=== PATIENT | male | born 1975 | race Caucasian/White ===

== ENCOUNTER 2017-06-19 12:45 | Emergency (ER) | payer SELFPAY ==
[2017-06-19] MEDS ORDERED: MORPHINE SULFATE 10 MG/ML INJ IM ONE (14:35)
[2017-06-19] MEDS ORDERED: KETOROLAC TROMETHAMINE 60 MG/2 ML SDV IM ONE (14:36)
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
[2017-06-19 16:58] VITALS: BP 130/82
== END 2017-06-19 16:58 | disposition home or self-care (01) ==
LOC: ER 12:45
DX: M54.41 Lumbago with sciatica, right side (principal); Z88.2 Allergy status to sulfonamides
CPT/HCPCS: 99283; 96372; 72110; J1885; J2270

== ENCOUNTER 2017-09-14 16:36 | Inpatient (IN) | payer SELFPAY ==
[~2017-09-14 16:36] MED LIST: LIDOCAINE 2% INJ-PF (20 MG/ML) 2 ML AMPUL ONE
--- NOTE | 2017-09-14 17:47 | ER Document Report ---
ED Skin Rash/Insect Bite/Abscs - General Chief Complaint: Abscess Stated Complaint: ABSCESS Time Seen by Provider: 09/14/17 17:41 Notes: Patient has 4 days of swelling and pain in the upper mid buttock area. He has never had this before. It has not drained. He has been running fever. Had not had a bowel movement for 4 days until he "forced myself to do it" this morning. No nausea or vomiting or diarrhea. TRAVEL OUTSIDE OF THE [place] IN LAST 30 DAYS: No - Related Data Allergies/Adverse Reactions: Sulfa (Sulfonamide Antibiotics) Allergy (Verified 09/14/17 16:36) Past Medical History - Social History Smoking Status: Unknown if Ever Smoked Family History: None, Reviewed & Not Pertinent - Past Medical History Cardiac Medical History: Reports: Hx Hypertension Endocrine Medical History: Denies: Hx Diabetes Mellitus Type 1, Hx Diabetes Mellitus Type 2 Review of Systems - Review of Systems Notes: REVIEW OF SYSTEMS: CONSTITUTIONAL : Has had fever. CARDIOVASCULAR: Denies chest pain. RESPIRATORY: Denies cough, chest congestion, or shortness of breath. GASTROINTESTINAL: Denies abdominal pain or nausea, vomiting, or diarrhea. No bowel movement for 4 days until he went today. GENITOURINARY: Denies difficulty or painful urinating, urinary frequency, blood in urine. MUSCULOSKELETAL: Denies back or neck pain. Denies joint pain or swelling. SKIN: See HPI. NEUROLOGICAL: Denies LOC or altered mental status. Denies headache. Denies sensory loss or motor deficits. ALL OTHER SYSTEMS REVIEWED AND NEGATIVE. Physical Exam - Vital signs Vitals: Temp Pulse Resp BP Pulse Ox 99.8 F 119 H 16 164/86 H 97 09/14/17 16:40 09/14/17 16:40 09/14/17 16:40 09/14/17 16:40 09/14/17 16:40 Interpretation: Tachycardic, Febrile - Low-grade - Notes Notes: PHYSICAL EXAMINATION: GENERAL: Appears uncomfortable, laying on his left side. HEAD: Atraumatic, normocephalic. NECK: Normal range of motion, supple. LUNGS: Breath sounds clear and equal bilaterally. HEART: Regular rate and rhythm without murmurs. ABDOMEN: Soft, nontender. No guarding or rebound. No masses. Patient has a very large swollen, warm, red area around what appears to be the original pilonidal cyst. It is extremely tense and tender to touch. Not draining yet. BACK: No tenderness throughout entire back. EXTREMITIES: Normal range of motion without pain. NEUROLOGICAL: Normal speech, normal gait. Normal sensory, motor, and reflex exams. Awake, alert, and oriented x3. Cranial nerves normal. PSYCH: Normal mood, normal affect. SKIN: Warm, dry, no rashes. Course - Re-evaluation Re-evalutation: 09/14/17 17:[address] Sales because I am not sure this is an abscess that we can address here in the emergency department. He will come and see the patient. 09/14/17 18:35 Dr. Sales has seen the patient and has recommended he have his procedure done in the operating room. Antibiotics have been started. IV fluids started. Pain medicine ordered. Antibiotic ordered. - Vital Signs Vital signs: Temp Pulse Resp BP Pulse Ox 99.8 F 119 H 16 164/86 H 97 09/14/17 16:40 09/14/17 16:40 09/14/17 16:40 09/14/17 16:40 09/14/17 16:40 - Laboratory Result Diagrams: 09/14/17 18:39 09/14/17 18:39 Laboratory results interpreted by me: 09/14/17 18:39 WBC 12.5 H Hgb 17.3 H Seg Neutrophils % 78.4 H Lymphocytes % 12.9 L Absolute Neutrophils 9.8 H Discharge - Discharge Clinical Impression: Pilonidal abscess Condition: Stable Disposition: ADMITTED OBSERVATION Admitting Provider: Surgicalist Unit Admitted: OR
[2017-09-14] MEDS ORDERED: FENTANYL CITRATE INJ/PF 250 MCG/5 ML AMPULE IV ONE (17:48)
[2017-09-14] MEDS ORDERED: NORMAL SALINE 1000 ML 1,000 ML IV ONE (17:49)
--- NOTE | 2017-09-14 18:27 | PDOC H&P ---
History of Present Illness Admission Date/PCP: 09/14/17 Patient complains of: coccygeal pains History of Present Illness: CHANTELL HIGUERA is a 42 year old male who started to have coccygeal pains 4 days ago asso with fever and chills past 2 days. Denies Diabetes but has polyuria and polydipsia with symptoms of hypoglycemia. Past Medical History Cardiac Medical History: Reports: Hypertension Endocrine Medical History: Denies: Diabetes Mellitus Type 1, Diabetes Mellitus Type 2 Past Surgical History Past Surgical History: Reports: Cholecystectomy Social History Smoking Status: Current Every Day Smoker Cigarettes Packs Per Day: 1.0 Frequency of Alcohol Use: Rare Hx Recreational Drug Use: No Family History Family History: None, Reviewed & Not Pertinent Parental Family History Reviewed: Yes Children Family History Reviewed: No Sibling(s) Family History Reviewed.: No Medication/Allergy Home Medications: Lisinopril/Hydrochlorothiazide [Zestoretic 20-25 mg Tablet] 1 tab PO DAILY 09/14 Omeprazole Magnesium [Prilosec Otc] 20 mg PO DAILY 09/14/17 Acetaminophen [Tylenol 325 mg Tablet] 650 mg PO Q6HP PRN tablet 09/16/17 Amox Tr/Potassium Clavulanate [Augmentin 875-125 mg Tablet] 1 tab PO BID #20 tablet 09/16/17 Blood Sugar Diagnostic [Test Strips] 1 each MC DAILY #90 strip 09/16/17 Blood-Glucose Meter [Blood Glucose Meter] 1 unit MC DAILY PRN #1 unit 09/16/17 Insulin Lispro [Humalog Insulin (Lispro) 100 unit/mL] 0 - 12 unit SUBCUT Q6HP PRN unit 09/16/17 Lancets [Blood Lancets] 1 each MC DAILY #90 each 09/16/17 Metformin HCl [Glucophage] 850 mg PO BIDACBS #60 tablet 09/16/17 Metoclopramide HCl [Reglan 10 mg Tablet] 5 mg PO ACHS #120 tablet 09/16/17 Nicotine [Nicoderm 21 mg/24 Hr Transderm Patch] 1 each TD DAILYP PRN #30 patch.td24 09/16/17 Oxycodone HCl/Acetaminophen [Percocet 5-325 mg Tablet] 1 tab PO Q4HP PRN #18 tablet 09/16/17 Allergies/Adverse Reactions: Sulfa (Sulfonamide Antibiotics) Allergy (Verified 09/14/17 16:36) Review of Systems Constitutional: PRESENT: headache(s) Eyes: PRESENT: other - no visual/hearing changes Cardiovascular: PRESENT: other - no chest pains/cough Gastrointestinal: PRESENT: other - no n/v Genitourinary: PRESENT: other - no dysuria Integumentary: PRESENT: erythema - coccygeal area Neurological: PRESENT: dizziness Endocrine: PRESENT: other - has polyuria/polydipsia Physical Exam Vital Signs: Temp Pulse Resp BP Pulse Ox 99.8 F 119 H 16 164/86 H 97 09/14/17 16:40 09/14/17 16:40 09/14/17 16:40 09/14/17 16:40 09/14/17 16:40 Intake & Output 09/13/17 09/14/17 09/15/17 06:59 06:59 06:59 Weight 121.9 kg General appearance: PRESENT: severe distress Head exam: PRESENT: atraumatic Eye exam: PRESENT: conjunctiva pink Mouth exam: PRESENT: moist Neck exam: PRESENT: full ROM Respiratory exam: PRESENT: clear to auscultation shilpa Cardiovascular exam: PRESENT: RRR Pulses: PRESENT: normal radial pulses Vascular exam: PRESENT: normal capillary refill GI/Abdominal exam: PRESENT: soft Rectal exam: PRESENT: deferred, tenderness - above rectum at coccygeal area with erythematous swelling Extremities exam: PRESENT: clubbing Musculoskeletal exam: PRESENT: ambulatory Neurological exam: PRESENT: alert, oriented to person, oriented to place, oriented to time, oriented to situation Psychiatric exam: PRESENT: appropriate affect Skin exam: PRESENT: normal color, warm Assessment & Plan - Diagnosis (1) Pilonidal abscess Is this a current diagnosis for this admission?: Yes (2) Tobacco abuse Is this a current diagnosis for this admission?: Yes - Time Time Spent: 30 to 50 Minutes - Inpatient Certification Based on my medical assessment, after consideration of the patient's comorbidities, presenting symptoms, or acuity I expect that the services needed warrant INPATIENT care.: No I certify that my determination is in accordance with my understanding of Medicare's requirements for reasonable and necessary INPATIENT services [42 CFR 412.3e].: Yes Medical Necessity: Need For IV Fluids, Need for IV Antibiotics, Need for Surgery - Plan Summary Plan Summary: IV antibiotic For I&D
[2017-09-14] MEDS ORDERED: PIPERACILLIN/TAZOBACTAM 3.375 GM VIAL IV ONE (18:30)
[2017-09-14] MEDS ORDERED: FENTANYL CITRATE INJ/PF 100 MCG/2 ML AMPUL IV ONE (18:50)
[2017-09-14 18:52] LABS: ABSOLUTE BASOPHILS # (AUTO) 0.1 10^3/uL (0.0-0.2); ABSOLUTE EOSINOPHILS # (AUTO) 0.2 10^3/uL (0.0-0.6); ABSOLUTE LYMPHOCYTES (AUTO) 1.6 10^3/uL (0.5-4.7); ABSOLUTE MONOCYTES (AUTO) 0.7 10^3/uL (0.1-1.4); ABSOLUTE NEUT (AUTO) 9.8 10^3/uL (1.7-8.2); BASOPHILS % (AUTO) 0.8 % (0-2); EOSINOPHILS % (AUTO) 1.9 % (0-6); HEMOGLOBIN 17.3 g/dL (13.5-17.0); LYMPHOCYTES % (AUTO) 12.9 % (13-45); MEAN CORPUSCULAR HEMOGLOBIN 32.2 pg (27.0-33.4); MEAN CORPUSCULAR HGB CONC 35.2 g/dL (32.0-36.0); MEAN CORPUSCULAR VOLUME 91 fl (80-97); PLATELET COUNT 179 10^3/uL (150-450); RED BLOOD COUNT 5.37 10^6/uL (4.35-5.55); SEGMENTED NEUTROPHILS % (AUTO) 78.4 % (42-78); TOTAL CELLS COUNTED % (AUTO) 100 %; WHITE BLOOD COUNT 12.5 10^3/uL (4.0-10.5)
[2017-09-14 19:13] LABS: ANION GAP 12 (5-19); BLOOD UREA NITROGEN 11 mg/dL (7-20); CARBON DIOXIDE 29 mmol/L (22-30); CHLORIDE 94 mmol/L (98-107); GLUCOSE 362 mg/dL (75-110); SODIUM 134.9 mmol/L (137-145)
[2017-09-14] MEDS ORDERED: FENTANYL CITRATE INJ/PF 100 MCG/2 ML AMPUL ONE ×2 (20:26→20:27)
[2017-09-14] MEDS ORDERED: PROPOFOL INJ 200 MG/20 ML VIAL IV ONE (20:27)
[2017-09-14] MEDS ORDERED: MIDAZOLAM 2 MG/2 ML INJ ONE ×2 (20:27)
[2017-09-14] MEDS ORDERED: TETRACAINE HCL/PF 20MG/2ML AMPULE (SPINAL) ONE (20:47)
[2017-09-14] MEDS ORDERED: BUPIVACAINE HCL 0.5 % INJ/PF 30 ML SDV ONE (21:24)
[2017-09-14] MEDS ORDERED: LIDOCAINE 1% INJ-PF (10 MG/ML) 30 ML SDV ONE (21:33)
[2017-09-14] MEDS ORDERED: FENTANYL CITRATE INJ/PF 100 MCG/2 ML AMPUL IV PRN ×3 (21:49)
[2017-09-14] MEDS ORDERED: ONDANSETRON HCL INJ/PF 4 MG/2 ML SDV IV PRN ×2 (21:49→22:18)
[2017-09-14] MEDS ORDERED: DIPHENHYDRAMINE HCL 50 MG/ML VIAL IV PRN (21:49)
[2017-09-14] MEDS ORDERED: PROMETHAZINE HCL INJ 25 MG/1 ML VIAL IV PRN (21:49)
[2017-09-14] MEDS ORDERED: DEXMEDETOMIDINE INJ 80 MCG/20 ML VIAL IV ONE (22:00)
[2017-09-14] MEDS ORDERED: KETAMINE HCL INJ 500 MG/10 ML VIAL ONE (22:08)
[2017-09-14] MEDS ORDERED: MORPHINE SULFATE 10 MG/ML INJ IV PRN (22:14)
[2017-09-14] MEDS ORDERED: NORMAL SALINE 1000 ML 1,000 ML IV PRN (22:18)
--- NOTE | 2017-09-14 22:29 | OPERATIVE REPORT E ---
Operative Report NAME: CHANTELL HIGUERA : 1975 AGE: 42Y DATE OF SURGERY: 09/14/2017 ROOM: ED43 PREOPERATIVE DIAGNOSIS: PILONIDAL ABSCESS. POSTOPERATIVE DIAGNOSIS: PILONIDAL ABSCESS. OPERATION: Incision and drainage of pilonidal abscess. SURGEON: TYLER HARDWICK M.D. ANESTHESIA: Local MAC. INDICATION: This is a 42-year-old male who had been complaining of pain along the coccygeal area for the past 4 days. He complains of fever and chills and subsequently went to the ED. DESCRIPTION OF PROCEDURE: An attempt to do spinal anesthesia was done but unsuccessful. Because of this, an incision was then given with local MAC. The patient was then placed in the left side down position and patient given IV sedation. The pilonidal area was then prepped and draped in the usual sterile fashion. Appropriate timeout was then called. Next, local anesthesia infiltrated around pilonidal abscess. An incision was then made and a gush of purulent material noted. Cultures were then obtained. Specimen for C and S were then obtained. The incision was then extended to a distance of about 5 cm long. The cavity was then *------* dissected and some areas of *------* broken. There appeared to be some fleshy material that are yellowish that were extruded out and irrigated. Next, pulse lavage was then used to clear the cavity using about a liter of saline. Hemostasis controlled with cautery. Next, the cavity was then packed with 1/2" Iodoform gauze. Sterile dressings placed over the operative site. Needle, instrument, and sponge counts were all correct. ESTIMATED BLOOD LOSS: About 30 mL. DISPOSITION: The patient then brought to the recovery room in satisfactory condition. DICTATING PHYSICIAN: TYLER HARDWICK M.D. [id number] PHY#: [id number] ID: [id number] JOB#: [id number] ACCT: [id number] cc:TYLER HARDWICK M.D. >
[2017-09-14] MEDS: OXYCODONE-ACETAMINOPHEN 5-325 MG TABLET PO PRN (23:19)
[2017-09-14] MEDS ORDERED: ACETAMINOPHEN 325 MG TABLET ONE (23:36)
[2017-09-15] MEDS ORDERED: PIPERACILLIN SODIUM/TAZOBACTAM 3.375 GM in NORMAL SALINE 100 ML IV SCH ×2
[2017-09-15] MEDS ORDERED: PIPERACILLIN/TAZOBACTAM 3.375 GM VIAL IV ONE (00:10)
[2017-09-15] MEDS ORDERED: ACETAMINOPHEN 325 MG TABLET PO PRN (00:11)
[2017-09-15] MEDS: PIPERACILLIN/TAZOBACTAM 3.375 GM VIAL IV PRN ×2 (00:38→06:23)
[2017-09-15 01:36] LABS: ABSOLUTE EOSINOPHILS # (AUTO) 0.1 10^3/uL (0.0-0.6); ABSOLUTE LYMPHOCYTES (AUTO) 1.1 10^3/uL (0.5-4.7); ABSOLUTE MONOCYTES (AUTO) 0.8 10^3/uL (0.1-1.4); ABSOLUTE NEUT (AUTO) 9.1 10^3/uL (1.7-8.2); BASOPHILS % (AUTO) 0.4 % (0-2); EOSINOPHILS % (AUTO) 1.2 % (0-6); HEMATOCRIT 44.1 % (37.9-51.0); LYMPHOCYTES % (AUTO) 9.9 % (13-45); MEAN CORPUSCULAR HEMOGLOBIN 31.5 pg (27.0-33.4); MEAN CORPUSCULAR HGB CONC 34.1 g/dL (32.0-36.0); MEAN CORPUSCULAR VOLUME 92 fl (80-97); MONOCYTES % (AUTO) 6.9 % (3-13); PLATELET COUNT 160 10^3/uL (150-450); RED BLOOD COUNT 4.78 10^6/uL (4.35-5.55); RED CELL DISTRIBUTION WIDTH 12.9 % (11.5-14.0); SEGMENTED NEUTROPHILS % (AUTO) 81.6 % (42-78); TOTAL CELLS COUNTED % (AUTO) 100 %; WHITE BLOOD COUNT 11.1 10^3/uL (4.0-10.5)
[2017-09-15] MEDS: PIPERACILLIN SODIUM/TAZOBACTAM 3.375 GM in NORMAL SALINE 100 ML IV SCH ×5 (02:12→23:40)
[2017-09-15] MEDS: OXYCODONE-ACETAMINOPHEN 5-325 MG TABLET PO PRN ×3 (06:23→20:32)
[2017-09-15] MEDS ORDERED: NORMAL SALINE 1000 ML 1,000 ML IV PRN (09:13)
--- NOTE | 2017-09-15 09:13 | PDOC PROGRESS REPORT ---
Subjective Progress Note for:: 09/15/17 Subjective:: comfortable Reason For Visit: PILONIDAL CYST WITH ABSCESS Physical Exam Vital Signs: Temp Pulse Resp BP Pulse Ox 98.5 F 92 20 109/53 L 96 09/15/17 03:50 09/15/17 03:50 09/15/17 03:50 09/15/17 03:50 09/15/17 08:29 Pulse Oximeter Continuous Start: 09/14/17 23: 31 Freq: RTQ4 Status: Active Document 09/15/17 08:29 [employer] (Rec: 09/15/17 08:29 [employer] [id number]) Pulse Oximetry Assessment Oxygen Saturation (92-100) 96 Oxygen Delivery Method Room Air Equipment Usage Equipment in Use Continuous SpO2 Machine # [id number] Intake & Output 09/14/17 09/15/17 09/16/17 06:59 06:59 06:59 Intake Total 1975 Output Total 950 Balance 1025 Skin exam: PRESENT: other - Sacral area: surgical wound clean, no ordor, packing in place, minimal drainage, upper medial buttocks tender and indurated, no eythema Results Laboratory Results: 09/15/17 01:10 09/15/17 01:10 WBC 11.1 H RBC 4.78 Hgb 15.0 D Hct 44.1 MCV 92 MCH 31.5 MCHC 34.1 RDW 12.9 Plt Count 160 Seg Neutrophils % 81.6 H Lymphocytes % 9.9 L Monocytes % 6.9 Eosinophils % 1.2 Basophils % 0.4 Absolute Neutrophils 9.1 H Absolute Lymphocytes 1.1 Absolute Monocytes 0.8 Absolute Eosinophils 0.1 Absolute Basophils 0.0 Assessment & Plan - Diagnosis (1) Pilonidal abscess Is this a current diagnosis for this admission?: Yes Plan: A/ POD#1 after I&D pilonidal cyst abscess Cx pending Wound clean On Zosyn P/ Remove packing Replace packing with triple antibiotic ointment BiD Continue Zosyn until final cx results are available Heplock IVF
[2017-09-15] MEDS ORDERED: DEXTROSE 50%-WATER 25 GM/50 ML DISP.SYRIN IV PRN ×2 (12:26)
[2017-09-15] MEDS ORDERED: DEXTROSE 40% GEL 15 GM TUBE PO PRN ×2 (12:26)
[2017-09-15] MEDS ORDERED: GLUCAGON,HUMAN RECOMB 1 MG INJ IM PRN (12:26)
[2017-09-15] MEDS ORDERED: NICOTINE 21 MG/24 HR PATCH.TD24 TD PRN (13:25)
--- NOTE | 2017-09-15 13:25 | PDOC CONSULTATION ---
Consultation Consult Date: 09/15/17 Attending physician:: KATHERINE GALLARDO Consult reason:: New onset diabetes mellitus, type II, uncontrolled History of Present Illness Admission Date/PCP: 09/14/17 20:00 History of Present Illness: Per H&P by Dr. Sales: CHANTELL HIGUERA is a 42 year old male who started to have coccygeal pains 4 days ago asso with fever and chills past 2 days. Denies Diabetes but has polyuria and polydipsia with symptoms of hypoglycemia. The patient was seen on rounds after being consulted by the surgical team for management of new onset diabetes mellitus. The patient is seen resting in bed comfortably with his significant other (a hemodialysis nurse) present. They report that he has had polydipsia and polyuria for several weeks to months. The patient also reports early satiety and frequent sensation of abdominal bloating. He endorses a history of hypertension and current tobacco dependency, but has no other known medical history. Past Medical History Cardiac Medical History: Reports: Hypertension Denies: Coronary Artery Disease, Myocardial Infarction, Hyperlipidema Pulmonary Medical History: Reports: None EENT Medical History: Reports: None Neurological Medical History: Reports: None Endocrine Medical History: Reports: Obesity Denies: Diabetes Mellitus Type 1, Diabetes Mellitus Type 2 Renal/ Medical History: Reports: None Malignancy Medical History: Reports: None GI Medical History: Reports: None Musculoskeltal Medical History: Reports: None Skin Medical History: Reports: None Psychiatric Medical History: Reports: Tobacco Dependency Traumatic Medical History: Reports: None Hematology: Reports: None Infectious Medical History: Reports: None Past Surgical History Past Surgical History: Reports: Cholecystectomy Social History Information Source: Patient Lives with: Spouse/Significant other Smoking Status: Current Every Day Smoker Cigarettes Packs Per Day: 1.5 Number of Years Smokin Last Time Smoked: 09/14/2017 Frequency of Alcohol Use: Occasional Hx Recreational Drug Use: No Drugs: None Hx Prescription Drug Abuse: No - Advance Directive Resuscitation Status: Full Code Family History Family History: None, Hyperlipidemia, Hypertension. denies: DM Parental Family History Reviewed: Yes Children Family History Reviewed: Yes Sibling(s) Family History Reviewed.: Yes Medication/Allergy Home Medications: Lisinopril/Hydrochlorothiazide [Zestoretic 20-25 mg Tablet] 1 tab PO DAILY 09/14 Omeprazole Magnesium [Prilosec Otc] 20 mg PO DAILY 09/14/17 Allergies/Adverse Reactions: Sulfa (Sulfonamide Antibiotics) Allergy (Verified 09/14/17 16:36) Review of Systems Constitutional: ABSENT: chills, fever(s), headache(s), weight gain, weight loss Eyes: ABSENT: visual disturbances Ears: ABSENT: hearing changes Cardiovascular: ABSENT: chest pain, dyspnea on exertion, edema, orthropnea, palpitations Respiratory: ABSENT: cough, hemoptysis Gastrointestinal: PRESENT: other - Early satiety. ABSENT: abdominal pain, constipation, diarrhea, hematemesis, hematochezia, nausea, vomiting Genitourinary: ABSENT: dysuria, hematuria Musculoskeletal: ABSENT: joint swelling Integumentary: PRESENT: as per HPI. ABSENT: rash, wounds Neurological: ABSENT: abnormal gait, abnormal speech, confusion, dizziness, focal weakness, syncope Psychiatric: ABSENT: anxiety, depression, homidical ideation, suicidal ideation Endocrine: PRESENT: polydipsia, polyuria. ABSENT: cold intolerance, heat intolerance Hematologic/Lymphatic: ABSENT: easy bleeding, easy bruising Physical Exam Vital Signs: Temp Pulse Resp BP Pulse Ox 98.2 F 73 20 106/63 95 09/15/17 09:00 09/15/17 09:00 09/15/17 09:00 09/15/17 09:00 09/15/17 09:00 Pulse Oximeter Continuous Start: 09/14/17 23: 31 Freq: RTQ4 Status: Complete Document 09/15/17 08:29 [facility] (Rec: 09/15/17 08:29 [facility] [email or web address]) Pulse Oximetry Assessment Oxygen Saturation (92-100) 96 Oxygen Delivery Method Room Air Equipment Usage Equipment in Use Continuous SpO2 Machine # [id number] Intake & Output 09/14/17 09/15/17 09/16/17 06:59 06:59 06:59 Intake Total 1975 Output Total 950 Balance 1025 General appearance: PRESENT: no acute distress, morbidly obese, well-developed, well-nourished Head exam: PRESENT: atraumatic, normocephalic Eye exam: PRESENT: conjunctiva pink, EOMI, PERRLA. ABSENT: scleral icterus Ear exam: PRESENT: normal external ear exam Mouth exam: PRESENT: moist, tongue midline Neck exam: ABSENT: carotid bruit, JVD, lymphadenopathy, thyromegaly Respiratory exam: PRESENT: clear to auscultation sihlpa, symmetrical, unlabored. ABSENT: rales, rhonchi, wheezes Cardiovascular exam: PRESENT: RRR, +S1, +S2. ABSENT: diastolic murmur, rubs, systolic murmur Pulses: PRESENT: normal dorsalis pedis pul Vascular exam: PRESENT: normal capillary refill GI/Abdominal exam: PRESENT: distended, firm, normal bowel sounds. ABSENT: guarding, mass, organolmegaly, rebound, tenderness Rectal exam: PRESENT: deferred Extremities exam: PRESENT: full ROM. ABSENT: calf tenderness, clubbing, pedal edema Neurological exam: PRESENT: alert, awake, oriented to person, oriented to place , oriented to time, oriented to situation, CN II-XII grossly intact. ABSENT: motor sensory deficit Psychiatric exam: PRESENT: appropriate affect, normal mood. ABSENT: homicidal ideation, suicidal ideation Skin exam: PRESENT: dry, intact, warm. ABSENT: cyanosis, rash Results Laboratory Results: 09/15/17 01:10 09/15/17 01:10 WBC 11.1 H RBC 4.78 Hgb 15.0 D Hct 44.1 MCV 92 MCH 31.5 MCHC 34.1 RDW 12.9 Plt Count 160 Seg Neutrophils % 81.6 H Lymphocytes % 9.9 L Monocytes % 6.9 Eosinophils % 1.2 Basophils % 0.4 Absolute Neutrophils 9.1 H Absolute Lymphocytes 1.1 Absolute Monocytes 0.8 Absolute Eosinophils 0.1 Absolute Basophils 0.0 Assessment & Plan - Diagnosis (1) Diabetes mellitus Qualifiers: Diabetes mellitus type: type 2 Diabetes mellitus senior care insulin use: without senior care use Is this a current diagnosis for this admission?: Yes Plan: New problem. The patient was admitted by surgical team for incision and draining of perineal abscess. Incidentally found to have a fasting blood glucose of greater than 300. Patient and significant other report recent history of polyuria and polydipsia. Will obtain hemoglobin A1c to determine aggressiveness of therapy. We will obtain lipid panel with morning labs. He is placed on a consistent carb diet with Humalog for sliding scale coverage. We will consult the registered dietitian and the senior health educator. (2) Hypertension Is this a current diagnosis for this admission?: Yes Plan: We will resume the patient's home medications; lisinopril and hydrochlorothiazide. (3) Abdominal fullness Is this a current diagnosis for this admission?: Yes Plan: Patient reports early satiety with sensation of abdominal fullness. Denies constipation. Given the patient's new diagnosis of diabetes mellitus will consider gastroparesis. Patient and significant other are interested in a trial of Reglan therapy. (4) Tobacco abuse Is this a current diagnosis for this admission?: Yes Plan: Smoking cessation is encouraged; nicotine replacement therapy is provided. (5) Pilonidal abscess Is this a current diagnosis for this admission?: Yes Plan: Managed by primary team; surgical assistant. - Time Time Spent: 30 to 50 Minutes Smoking Cessation Education: 3 to 10 minutes Medications reviewed and adjusted accordingly: Yes Anticipated discharge: Home
[2017-09-15] MEDS ORDERED: METOCLOPRAMIDE HCL 10 MG TABLET PO ONE (14:00)
[2017-09-15] MEDS: INSULIN LISPRO 100 UNIT/ML 3 ML VIAL SUBCUT PRN ×2 (17:39→21:46)
[2017-09-15] MEDS: METOCLOPRAMIDE HCL 10 MG TABLET PO SCH (21:33)
[2017-09-16] MEDS: PIPERACILLIN SODIUM/TAZOBACTAM 3.375 GM in NORMAL SALINE 100 ML IV SCH (05:05)
[2017-09-16 05:41] LABS: ABSOLUTE BASOPHILS # (AUTO) 0.1 10^3/uL (0.0-0.2); ABSOLUTE EOSINOPHILS # (AUTO) 0.3 10^3/uL (0.0-0.6); ABSOLUTE LYMPHOCYTES (AUTO) 1.8 10^3/uL (0.5-4.7); ABSOLUTE MONOCYTES (AUTO) 0.5 10^3/uL (0.1-1.4); ABSOLUTE NEUT (AUTO) 3.3 10^3/uL (1.7-8.2); BASOPHILS % (AUTO) 1.1 % (0-2); EOSINOPHILS % (AUTO) 4.5 % (0-6); HEMATOCRIT 40.8 % (37.9-51.0); HEMOGLOBIN 14.3 g/dL (13.5-17.0); LYMPHOCYTES % (AUTO) 30.8 % (13-45); MEAN CORPUSCULAR HEMOGLOBIN 31.7 pg (27.0-33.4); MEAN CORPUSCULAR VOLUME 91 fl (80-97); MONOCYTES % (AUTO) 7.9 % (3-13); PLATELET COUNT 156 10^3/uL (150-450); RED CELL DISTRIBUTION WIDTH 12.7 % (11.5-14.0); SEGMENTED NEUTROPHILS % (AUTO) 55.7 % (42-78); TOTAL CELLS COUNTED % (AUTO) 100 %
[2017-09-16 06:05] LABS: ANION GAP 8 (5-19); BLOOD UREA NITROGEN 7 mg/dL (7-20); CALCIUM 8.6 mg/dL (8.4-10.2); CARBON DIOXIDE 28 mmol/L (22-30); CHLORIDE 103 mmol/L (98-107); CHOLESTEROL 131.15 mg/dL (0-200); GLUCOSE 202 mg/dL (75-110); POTASSIUM 3.7 mmol/L (3.6-5.0); SODIUM 139.2 mmol/L (137-145); TRIGLYCERIDES 129 mg/dL (<150)
[2017-09-16 06:16] LABS: DIRECT LDL 89 mg/dL (<100)
--- NOTE | 2017-09-16 09:51 | PDOC PROGRESS REPORT ---
Subjective Progress Note for:: 09/16/17 Subjective:: reports much less discomfort of sacral area Reason For Visit: PILONIDAL CYST WITH ABSCESS Physical Exam Vital Signs: Temp Pulse Resp BP Pulse Ox 98.2 F 84 12 126/77 H 96 09/16/17 08:00 09/16/17 08:00 09/16/17 08:00 09/16/17 08:00 09/16/17 08:00 Pulse Oximeter Continuous Start: 09/14/17 23: 31 Freq: RTQ4 Status: Complete Document 09/15/17 08:29 [facility] (Rec: 09/15/17 08:29 [facility] [email or web address]) Pulse Oximetry Assessment Oxygen Saturation (92-100) 96 Oxygen Delivery Method Room Air Equipment Usage Equipment in Use Continuous SpO2 Machine # N-[id number] Intake & Output 09/15/17 09/16/17 09/17/17 06:59 06:59 06:59 Intake Total 1974 2014 Output Total 950 600 Balance 1025 1415 Skin exam: PRESENT: other - upper sacral area: still tissue induration, almost no pain on palpation, wound clean, no odor, minimal drainage Results Laboratory Results: 09/16/17 05:24 09/16/17 05:24 09/16/17 09/16/17 05:24 05:24 WBC 6.0 RBC 4.50 Hgb 14.3 Hct 40.8 MCV 91 MCH 31.7 MCHC 35.0 RDW 12.7 Plt Count 156 Seg Neutrophils % 55.7 Lymphocytes % 30.8 Monocytes % 7.9 Eosinophils % 4.5 Basophils % 1.1 Absolute Neutrophils 3.3 Absolute Lymphocytes 1.8 Absolute Monocytes 0.5 Absolute Eosinophils 0.3 Absolute Basophils 0.1 Sodium 139.2 Potassium 3.7 Chloride 103 Carbon Dioxide 28 Anion Gap 8 BUN 7 Creatinine 0.54 Est GFR ( Amer) > 60 Est GFR (Non-Af Amer) > 60 Glucose 202 H Calcium 8.6 Triglycerides 129 Cholesterol 131.15 LDL Cholesterol Direct 89 VLDL Cholesterol 26.0 HDL Cholesterol 24 L Assessment & Plan - Diagnosis (1) Pilonidal abscess Is this a current diagnosis for this admission?: Yes - Plan Summary Plan Summary: A/ POD#2 after I&D pilonoidal cyst preliminary cx significant for GNR and GPC PE shows goo response to I&D and IV abx P/ Discharge to home today Augmentin 875 mg po BID x 10 days shower BID, apply 3-4" triple antibiotic ointment into sacral wound, lightly pack with 5-7" 1/4 packing strip using a q-tip, cover with sponges return to General Surgery office PA
[2017-09-16] MEDS ORDERED: LISINOPRIL 10 MG TABLET PO SCH (10:00)
[2017-09-16] MEDS ORDERED: HYDROCHLOROTHIAZIDE 25 MG TABLET PO SCH (10:00)
[2017-09-16] MEDS ORDERED: (PENDING PHARMACY ID) (Lisinopril/Hydrochlorothiazide [Zestoretic 20-25 Mg Tablet] 1 TAB) PO SCH (10:00)
[2017-09-16] MEDS: OXYCODONE-ACETAMINOPHEN 5-325 MG TABLET PO PRN (10:05)
[2017-09-16] MEDS: METOCLOPRAMIDE HCL 10 MG TABLET PO SCH (10:07)
--- NOTE | 2017-09-16 10:09 | DISCHARGE SUMMARY E ---
Discharge Summary NAME: CHANTELL HIGUERA : 1975 AGE: 42Y ADMITTED: 09/14/2017 DISCHARGED: 09/16/2017 FINAL DIAGNOSIS: Perianal cyst abscess. PROCEDURE: On September 14, 2017, the patient underwent incision and drainage of pylonidal cyst abscess. COMPLICATIONS: None. HOSPITAL COURSE: This is a 42-year-old morbidly obese male diagnosed with diabetes who presented to the emergency room with pain at the sacral area. It was found to be an abscess of a pylonidal cyst. He was taken to surgery. He underwent incision and drainage and cultures of the area. He was started on IV Zosyn antibiotic with improvement. On the day of discharge, the patient was afebrile. Vital signs were stable. His white blood cell count was normal. He was able to tolerate p.o. well. On physical exam, the sacral area had no evidence of erythema. There was some tissue induration and minimal pain. The wound was clean, draining minimal amount of serous fluid. Intraoperative culture were signficant for gram negative rods and positive cocci. DISCHARGE ORDERS: The patient was discharged to home on September 16. He was given a followup appointment in about a week to surgical office with the surgical PA. He was given Augmentin 875 mg p.o. b.i.d. for 10 days. He was instructed to shower twice a day. After shower, to apply 2-4 inches of triple antibiotic ointment into the wound and to pack the wound lightly with about 5-7 inches of 1/4 inch packing strip. DICTATING PHYSICIAN: KATHERINE GALLARDO M.D. [id number] PHY#: [id number] ID: [id number] JOB#: [id number] ACCT: [id number] cc:[facility], KATHERINE SEO MD, M.D, M.D., JAMES M.D. > MTDD
[2017-09-16 11:09] VITALS: BP 131/84
--- NOTE | 2017-09-16 11:29 | PDOC PROGRESS REPORT ---
Subjective Progress Note for:: 09/16/17 Subjective:: The patient is a 42-year-old male with a past medical history significant for hypertension, obesity and continuous tobacco use who was admitted by the surgical team for incision and drainage of a pilonidal abscess. Hospitalist service was consulted for evaluation and management of new diagnosis of diabetes mellitus. The patient was seen on morning rounds; he is found resting in bed comfortably on room air. He is very appreciative of the extension educator who spent time with him yesterday. He does request not to be prescribed insulin as he has a needle aversion, but does feel he can check his blood sugar without difficulty. He also asks for $4-list medications as he is uninsured. Otherwise, he has no new questions or concerns. Reason For Visit: PILONIDAL CYST WITH ABSCESS Physical Exam Vital Signs: Temp Pulse Resp BP Pulse Ox 98.5 F 85 13 131/84 H 96 09/16/17 11:00 09/16/17 11:00 09/16/17 11:00 09/16/17 11:00 09/16/17 11:00 Pulse Oximeter Continuous Start: 09/14/17 23: 31 Freq: RTQ4 Status: Complete Document 09/15/17 08:29 [facility] (Rec: 09/15/17 08:29 [facility] [email or web address]) Pulse Oximetry Assessment Oxygen Saturation (92-100) 96 Oxygen Delivery Method Room Air Equipment Usage Equipment in Use Continuous SpO2 Machine # N-5 Intake & Output 09/15/17 09/16/17 09/17/17 06:59 06:59 06:59 Intake Total 1974 2014 Output Total 950 600 Balance 1025 1415 General appearance: PRESENT: no acute distress, obese, well-developed, well- nourished Head exam: PRESENT: atraumatic, normocephalic Eye exam: PRESENT: conjunctiva pink, EOMI, PERRLA. ABSENT: scleral icterus Ear exam: PRESENT: normal external ear exam Mouth exam: PRESENT: moist, tongue midline Neck exam: ABSENT: carotid bruit, JVD, lymphadenopathy, thyromegaly Respiratory exam: PRESENT: clear to auscultation shilpa, symmetrical, unlabored. ABSENT: rales, rhonchi, wheezes Cardiovascular exam: PRESENT: RRR, +S1, +S2. ABSENT: diastolic murmur, rubs, systolic murmur Pulses: PRESENT: normal dorsalis pedis pul Vascular exam: PRESENT: normal capillary refill GI/Abdominal exam: PRESENT: normal bowel sounds, soft. ABSENT: distended, guarding, mass, organolmegaly, rebound, tenderness Rectal exam: PRESENT: deferred Extremities exam: PRESENT: full ROM. ABSENT: calf tenderness, clubbing, pedal edema Neurological exam: PRESENT: alert, awake, oriented to person, oriented to place , oriented to time, oriented to situation, CN II-XII grossly intact. ABSENT: motor sensory deficit Psychiatric exam: PRESENT: appropriate affect, normal mood. ABSENT: homicidal ideation, suicidal ideation Skin exam: PRESENT: dry, warm. ABSENT: cyanosis, intact - surgical site not visualized, rash Results Laboratory Results: 09/16/17 05:24 09/16/17 05:24 09/16/17 09/16/17 05:24 05:24 WBC 6.0 RBC 4.50 Hgb 14.3 Hct 40.8 MCV 91 MCH 31.7 MCHC 35.0 RDW 12.7 Plt Count 156 Seg Neutrophils % 55.7 Lymphocytes % 30.8 Monocytes % 7.9 Eosinophils % 4.5 Basophils % 1.1 Absolute Neutrophils 3.3 Absolute Lymphocytes 1.8 Absolute Monocytes 0.5 Absolute Eosinophils 0.3 Absolute Basophils 0.1 Sodium 139.2 Potassium 3.7 Chloride 103 Carbon Dioxide 28 Anion Gap 8 BUN 7 Creatinine 0.54 Est GFR ( Amer) > 60 Est GFR (Non-Af Amer) > 60 Glucose 202 H Calcium 8.6 Triglycerides 129 Cholesterol 131.15 LDL Cholesterol Direct 89 VLDL Cholesterol 26.0 HDL Cholesterol 24 L Assessment & Plan - Diagnosis (1) Diabetes mellitus Qualifiers: Diabetes mellitus type: type 2 Diabetes mellitus usp insulin use: without intermission coordinator use Is this a current diagnosis for this admission?: Yes Plan: New problem. A1c 11.6% The patient was admitted by surgical team for incision and draining of perineal abscess. Incidentally found to have a fasting blood glucose of greater than 300. Patient and significant other report recent history of polyuria and polydipsia. Lipid panel is acceptable; pt is encouraged to increase fiber and exercise to improve HDL. Continue consistent carb diet. The patient has met with the extension educator. In anticipation of discharge; pt is provided prescriptions for glucometer/strips /lancets and metformin. He is strongly encouraged to make dietary changes and increase physical activity. (2) Hypertension Is this a current diagnosis for this admission?: Yes Plan: Continue home medications; lisinopril and hydrochlorothiazide. (3) Abdominal fullness Is this a current diagnosis for this admission?: Yes Plan: Improved with addition of reglan yesterday. Patient reports early satiety with sensation of abdominal fullness. Denies constipation. Given the patient's new diagnosis of diabetes mellitus will consider gastroparesis. Patient encouraged to discuss symptoms with primary care provider at follow-up. (4) Tobacco abuse Is this a current diagnosis for this admission?: Yes Plan: Smoking cessation is encouraged; nicotine replacement therapy is provided. (5) Pilonidal abscess Is this a current diagnosis for this admission?: Yes Plan: Managed by primary team; registered nurse surgical services. - Time Time Spent with patient: 15-24 minutes Medications reviewed and adjusted accordingly: Yes
== END 2017-09-16 11:50 | disposition home or self-care (01) | DRG 603 ==
LOC: ER 16:36 → EH 18:51 → OBSVTOIN 20:00 → 4S 23:04
PROVIDERS: ADMIT Surgery; ATTEND Surgery
PROC: 0H98XZZ Drainage of Buttock Skin, External Approach (ICD-10-PCS; principal; 2017-09-14 21:30)
DX: L05.01 Pilonidal cyst with abscess (principal); Z68.41 Body mass index [BMI] 40.0-44.9, adult; I10 Essential (primary) hypertension; E11.65 Type 2 diabetes mellitus with hyperglycemia; E66.01 Morbid (severe) obesity due to excess calories; B96.89 Other specified bacterial agents as the cause of diseases classified elsewhere; F17.210 Nicotine dependence, cigarettes, uncomplicated; Z79.84 Long term (current) use of oral hypoglycemic drugs; Z79.4 Long term (current) use of insulin; Z79.899 Other long term (current) drug therapy
CPT/HCPCS: 300; 36415; 80048; 80061; 82962; 83036; 85025; 87040; 87070; 87075; 87077; 87205; 94762; 96365; 96375; 99285; A6266; J1815; J2250; J2543; J2704; J3010; J3490; J7030

== ENCOUNTER 2017-10-12 16:54 | Inpatient (IN) | payer SELFPAY ==
[2017-10-12 17:53] LABS: ABSOLUTE EOSINOPHILS # (AUTO) 0.1 10^3/uL (0.0-0.6); ABSOLUTE LYMPHOCYTES (AUTO) 1.4 10^3/uL (0.5-4.7); ABSOLUTE MONOCYTES (AUTO) 0.6 10^3/uL (0.1-1.4); ABSOLUTE NEUT (AUTO) 7.5 10^3/uL (1.7-8.2); BASOPHILS % (AUTO) 0.2 % (0-2); EOSINOPHILS % (AUTO) 0.8 % (0-6); HEMATOCRIT 45.8 % (37.9-51.0); HEMOGLOBIN 16.1 g/dL (13.5-17.0); LYMPHOCYTES % (AUTO) 14.6 % (13-45); MEAN CORPUSCULAR HGB CONC 35.2 g/dL (32.0-36.0); MEAN CORPUSCULAR VOLUME 91 fl (80-97); PLATELET COUNT 161 10^3/uL (150-450); RED BLOOD COUNT 5.04 10^6/uL (4.35-5.55); RED CELL DISTRIBUTION WIDTH 13.2 % (11.5-14.0); SEGMENTED NEUTROPHILS % (AUTO) 78.4 % (42-78); TOTAL CELLS COUNTED % (AUTO) 100 %; WHITE BLOOD COUNT 9.6 10^3/uL (4.0-10.5)
[2017-10-12 18:01] LABS: APPEARANCE,URINE CLEAR; BILIRUBIN,URINE NEGATIVE (NEGATIVE); COLOR,URINE YELLOW; GLUCOSE, URINE NEGATIVE (NEGATIVE); KETONES,URINE NEGATIVE (NEGATIVE); LEUKOCYTE ESTERASE,URINE NEGATIVE (NEGATIVE); NITRITE,URINE NEGATIVE (NEGATIVE); PROTEIN,URINE 30 mg/dL (NEGATIVE); URINE SPECIFIC GRAVITY 1.017
[2017-10-12 18:02] LABS: INTERNATIONAL RATION (INR) 1.04; PROTHROMBIN TIME 14.1 SEC (11.4-15.4)
[2017-10-12] MEDS: NORMAL SALINE 1000 ML 1,000 ML IV PRN ×2 (18:03→18:04)
[2017-10-12 18:15] LABS: ALANINE AMINOTRANSFERASE 49 U/L (21-72); ALBUMIN 4.6 g/dL (3.5-5.0); ALKALINE PHOSPHATASE 61 U/L (38-126); ANION GAP 19 (5-19); ASPARTATE AMINO TRANSFERASE 32 U/L (17-59); BILIRUBIN,DIRECT 0.4 mg/dL (0.0-0.4); BILIRUBIN,TOTAL 0.8 mg/dL (0.2-1.3); BLOOD UREA NITROGEN 7 mg/dL (7-20); CALCIUM 9.9 mg/dL (8.4-10.2); CARBON DIOXIDE 24 mmol/L (22-30); CHLORIDE 96 mmol/L (98-107); GLUCOSE 154 mg/dL (75-110); LIPASE 42.9 U/L (23-300); POTASSIUM 4.2 mmol/L (3.6-5.0); SODIUM 138.8 mmol/L (137-145); TOTAL PROTEIN 7.7 g/dL (6.3-8.2)
[2017-10-12] MEDS ORDERED: ACETAMINOPHEN 325 MG TABLET PO ONE (18:18)
--- NOTE | 2017-10-12 18:39 | RADIOLOGY REPORT (SQ) ---
EXAM DESCRIPTION: CTA CHEST COMPLETED DATE/TIME: 10/12/2017 6:25 pm REASON FOR STUDY: recent surgery hypoxia fever COMPARISON: None. TECHNIQUE: CT scan of the chest performed using helical scanning technique with dynamic intravenous contrast injection. Images reviewed with lung, soft tissue and bone windows. Reconstructed coronal and sagittal MPR images reviewed. Additional 3 dimensional post-processing performed to develop Maximal Intensity Projection images ([place] P). All images stored on PACS. All CT scanners at this facility use dose modulation, iterative reconstruction, and/or weight based d osing when appropriate to reduce radiation dose to as low as reasonably achievable (ALARA). [facility]: Dose Right [facility]: CareDose [facility]: Dose Right [facility]: Teradose 4D [facility]: [employer]fter CONTRAST TYPE AND DOSE: contrast/concentration: Isovue 370.00 mg/ml; Total Contrast Delivered: 83.0 ml; Total Saline Delivered: 110.0 ml Contrast bolus optimized for the pulmonary arteries. Not diagnostic for the aorta. RENAL FUNCTION: Creatinine 0.54 RADIATION DOSE: CT Rad equipment meets quality standard of care and radiation dose reduction techniq ues were employed. CTDIvol: 41.3 - 49.5 mGy. DLP: 1871 mGy-cm. . LIMITATIONS: None. FINDINGS: LUNGS AND PLEURA: Patchy airspace densities are identified in the left lower lobe and in t he inferior lingula of the left upper lobe most consistent with patchy pneumonic infiltrates. Right lung is clear and well expanded. No pleural effusions are identified. AORTA AND GREAT VESSELS: No aneurysm. Contrast bolus not optimized for the aorta. HEART: No pericardial effusion. No significant coronary artery calcifications. PULMONARY ARTERIES: No emboli visualized in the main pulmonary arteries or the segmental branches. HILAR AND MEDIASTINAL STRUCTURES: No identified masses or abnormal nodes. HARDWARE: None in the chest. UPPER ABDOMEN: No significant findings. Limited exam. THYROID AND OTHER SOFT TISSUES: No masses. No adenopathy. BONES: No acute or significant finding. 3D MIPS: Confirm above findings. OTHER: No other significant finding. IMPRESSION: No evidence for pulmonary embolic disease. Patchy airspace densities in the left lung a s noted above most consistent with patchy pneumonic infiltrates. Right lung is clear and well expand ed. No pleural effusions are identified. Other findings as noted above COMMENT: Quality ID # [id number]: Final reports with documentation of one or more dose reduction techniques (e.g., Automated exposure control, adjustment of the mA and/or kV according to patient size, use of iterative reconstruction technique) TECHNICAL DOCUMENTATION: JOB ID: [id number] [employer]- All Rights Reserved Reading location - IP/workstation name: [email or web address]
[2017-10-12] MEDS ORDERED: CEFTRIAXONE 1 GM/D5W RTU 1 GM/50 ML RTUPB IV ONE (18:57)
[2017-10-12] MEDS ORDERED: AZITHROMYCIN INJ 500 MG VIAL IV ONE (18:57)
[2017-10-12] MEDS ORDERED: LEVOFLOXACIN 500 MG/D5W RTU 500 MG/100 ML RTUPB IV ONE (18:58)
[2017-10-12] MEDS ORDERED: IPRATROPIUM/ALBUTEROL 0.5-2.5 MG/3 ML AMPUL NEB ONE (18:58)
[2017-10-12 19:25] LABS: VENOUS BLOOD BASE EXCESS 0.4 mmol/L; VENOUS BLOOD HCO3 23.6 mmol/L (20-32); VENOUS BLOOD PCO2 34.3 mmHg (35-63); VENOUS BLOOD PH 7.46 (7.30-7.42)
--- NOTE | 2017-10-12 19:28 | EKG REPORT ---
SEVERITY:- OTHERWISE NORMAL ECG - SINUS TACHYCARDIA : Confirmed by: Sunny Maravilla MD 12-Oct-2017 19:28:27
[2017-10-12 19:44] LABS: A TYPE INFLUENZA AG NEGATIVE (NEGATIVE); B INFLUENZA AG NEGATIVE (NEGATIVE)
[2017-10-12] MEDS ORDERED: NICOTINE 21 MG/24 HR PATCH.TD24 TD PRN (20:10)
[2017-10-12] MEDS ORDERED: HYDRALAZINE HCL INJ/PF 20 MG/1 ML SDV IV PRN (20:12)
[2017-10-12] MEDS ORDERED: IPRATROPIUM/ALBUTEROL 0.5-2.5 MG/3 ML AMPUL NEB PRN (20:12)
[2017-10-12] MEDS ORDERED: INSULIN LISPRO 100 UNIT/ML 3 ML VIAL SUBCUT PRN (20:14)
[2017-10-12] MEDS ORDERED: DEXTROSE 50%-WATER 25 GM/50 ML DISP.SYRIN IV PRN ×2 (20:14)
[2017-10-12] MEDS ORDERED: DEXTROSE 40% GEL 15 GM TUBE PO PRN ×2 (20:14)
[2017-10-12] MEDS ORDERED: GLUCAGON,HUMAN RECOMB 1 MG INJ IM PRN (20:14)
--- NOTE | 2017-10-12 20:33 | ER Document Report ---
ED General - General Chief Complaint: Cough Stated Complaint: FEVER,COUGH,DIARRHEA Time Seen by Provider: 10/12/17 17:16 TRAVEL OUTSIDE OF THE [place] IN LAST 30 DAYS: No - HPI Patient complains to provider of: Fever cough diarrhea Notes: Patient coming in for fever cough and diarrhea. Patient upon being triage found to have temperature lost and found to be tachycardic with hypoxia. Patient normally does not wear oxygen patient was brought straight back. Patient states recent history having a pilonidal abscess drained undergoing general anesthesia for this procedure to be form states he was on Augmentin however finished Augmentin weeks ago and has had multiple bouts of diarrhea over the last few days. Denies any other antibiotics. Patient otherwise states she has diffuse myalgias but no specific area of pain. Patient denies a history of being on oxygen however at this time is requiring 2-3 L to keep his SPO2 around 93%. Patient is tachycardic denies chest pain but does state he is short of breath states cough is nonproductive. - Related Data Allergies/Adverse Reactions: Sulfa (Sulfonamide Antibiotics) Allergy (Verified 09/14/17 16:36) Past Medical History - Social History Smoking Status: Current Every Day Smoker Chew tobacco use (# tins/day): No Family History: None, Reviewed & Not Pertinent Patient has suicidal ideation: No Patient has homicidal ideation: No - Past Medical History Cardiac Medical History: Reports: Hx Hypertension Denies: Hx Coronary Artery Disease, Hx Heart Attack, Hx Hypercholesterolemia Endocrine Medical History: Denies: Hx Diabetes Mellitus Type 1, Hx Diabetes Mellitus Type 2 Renal/ Medical History: Denies: Hx Peritoneal Dialysis Past Surgical History: Reports: Hx Cholecystectomy Review of Systems - Review of Systems Constitutional: Fever - Diarrhea cough EENT: No symptoms reported Cardiovascular: No symptoms reported Respiratory: No symptoms reported Gastrointestinal: No symptoms reported Genitourinary: No symptoms reported Male Genitourinary: No symptoms reported Musculoskeletal: No symptoms reported Skin: No symptoms reported Hematologic/Lymphatic: No symptoms reported Neurological/Psychological: No symptoms reported Physical Exam - Vital signs Vitals: Resp Pulse Ox 33 H 93 10/12/17 17:31 10/12/17 17:31 Interpretation: Tachycardic, Hypoxic, Tachypneic, Febrile - General General appearance: Appears well, Alert - HEENT Head: Normocephalic, Atraumatic Eyes: Normal Pupils: PERRL - Respiratory Respiratory status: Respiratory distress - Mild, Tachypnea Chest status: Nontender Breath sounds: Rhonchi Chest palpation: Normal - Cardiovascular Rhythm: Regular, Tachycardia Heart sounds: Normal auscultation Murmur: No - Abdominal Inspection: Normal Distension: No distension Bowel sounds: Normal Tenderness: Nontender Organomegaly: No organomegaly - Back Back: Normal, Nontender - Extremities General upper extremity: Normal inspection, Nontender, Normal color, Normal ROM , Normal temperature General lower extremity: Normal inspection, Nontender, Normal color, Normal ROM , Normal temperature, Normal weight bearing. No: Martha's sign - Neurological Neuro grossly intact: Yes Cognition: Normal Orientation: AAOx4 Alejandro Coma Scale Eye Opening: Spontaneous Mans[place] Coma Scale Verbal: Oriented [place] Coma Scale Motor: Obeys Commands Mansura Coma Scale Total: 15 Speech: Normal Motor strength normal: LUE, RUE, LLE, RLE Sensory: Normal - Psychological Associated symptoms: Normal affect, Normal mood - Skin Skin Temperature: Warm Skin Moisture: Dry Skin Color: Normal Course - Re-evaluation Re-evalutation: 10/12/17 22:41 Patient symptoms improved with reduction of fever and breathing treatment. Because the recent surgery tachycardia and fever decided CTA will be the easiest modality to rule out PE pneumonia and other critical pathology. No PE but CAT scan does show patchy airspace disease consistent with pneumonia. No leukocytosis but does have a slight left shift. This start the patient on antibiotic Levaquin no other signs of infection seen. Patient's oxygenation still remain marginal with SPO2 93 on 2 L. Patient does state a history of sleep apnea more likely may require CPAP or BiPAP at night while sleeping. Otherwise patient states overall improvement of how he felt. Because of continued oxygen use patient's case was referred to the hospitalist for admission - Vital Signs Vital signs: Temp Pulse Resp BP Pulse Ox 24 H 107/66 94 10/12/17 21:00 10/12/17 20:30 10/12/17 21:00 - Laboratory Result Diagrams: 10/12/17 17:17 10/12/17 17:17 Laboratory results interpreted by me: 10/12/17 10/12/17 10/12/17 17:17 17:17 17:17 Seg Neutrophils % 78.4 H VBG pH VBG pCO2 Chloride 96 L Glucose 154 H POC Glucose Lactic Acid Urine Protein 30 H Urine Urobilinogen 2.0 H 10/12/17 10/12/17 10/12/17 17:45 19:03 19:06 Seg Neutrophils % VBG pH 7.46 H VBG pCO2 34.3 L Chloride Glucose POC Glucose 124 H Lactic Acid 2.4 H Urine Protein Urine Urobilinogen Critical Care Note - Critical Care Note Total time excluding time spent on procedures (mins): 35 Comments: Patient was sepsis due to pneumonia multiple reevaluation Discharge - Discharge Clinical Impression: Pneumonia, Sepsis Condition: Good Disposition: ADMITTED INPATIENT [facility] Admitted: Telemetry
[2017-10-12] MEDS ORDERED: CHLORPHENIRAMINE MALEATE 4 MG TABLET PO ONE (21:00)
[2017-10-12] MEDS ORDERED: HYDROCHLOROTHIAZIDE 25 MG TABLET PO ONE (21:30)
[2017-10-12] MEDS ORDERED: LISINOPRIL 10 MG TABLET PO ONE (21:30)
--- NOTE | 2017-10-12 22:46 | ER Document Report ---
Sepsis - Vital Signs Vitals: Temp Pulse Resp BP Pulse Ox 22 H 138/81 H 92 10/12/17 22:01 10/12/17 22:01 10/12/17 22:01 Interpretation: Tachypneic - Cardiovascular Peripheral Pulse Strength: Normal Rhythm: Regular Heart Sounds: Normal auscultation - Respiratory Breath Sounds: Rhonchi Respiratory Status: Tachypnea - Skin Skin Color: Normal
[2017-10-12] MEDS: FLUTICASONE NASAL SPRAY 50 MCG/SPRY 120 SPRAY/16 GM NASL SCH (22:53)
[2017-10-12] MEDS: NORMAL SALINE 1000 ML 1,000 ML IV SCH (22:59)
[2017-10-12] MEDS: METOCLOPRAMIDE HCL 10 MG TABLET PO SCH (22:59)
[2017-10-12] MEDS: HEPARIN SOD (PORCINE) 5,000 UNIT/ML 1 ML SYRINGE SUBCUT SCH (23:00)
[2017-10-13] MEDS: GUAIFENESIN/D-METHORPHAN (200-20 MG) SYRUP 10 ML PO PRN ×3 (01:15→18:39)
[2017-10-13] MEDS: IPRATROPIUM/ALBUTEROL 0.5-2.5 MG/3 ML AMPUL NEB SCH ×4 (01:50→19:50)
[2017-10-13] MEDS: ACETAMINOPHEN 325 MG TABLET PO PRN ×2 (04:42→13:01)
--- NOTE | 2017-10-13 04:43 | PDOC H&P ---
History of Present Illness Admission Date/PCP: 10/12/17 20:37 Patient complains of: Shortness of breath and cough History of Present Illness: CHANTELL HIGUERA is a 42 year old male with a history of tobacco, chronic bronchitis , obstructive sleep apnea, diabetes, hypertension and GERD. Patient presents with 3 days of nonproductive cough and shortness of breath prompting evaluation emergency room where he is found to have CT of the chest showing left-sided infiltrate. He started on empiric antibiotics and referred to the hospitalist for admission. Patient admits recent ill contacts with pneumonia. He denies chest pain, rhinorrhea, sore throat or GERD. Past Medical History Cardiac Medical History: Reports: Hypertension Denies: Coronary Artery Disease, Myocardial Infarction, Hyperlipidema Pulmonary Medical History: Reports: Bronchitis Endocrine Medical History: Reports: Diabetes Mellitus Type 1, Obesity Denies: Diabetes Mellitus Type 2 Psychiatric Medical History: Reports: Tobacco Dependency Past Surgical History Past Surgical History: Reports: Cholecystectomy Social History Information Source: Patient, [facility] Records Smoking Status: Current Every Day Smoker Cigarettes Packs Per Day: 1 Frequency of Alcohol Use: Rare Hx Recreational Drug Use: No Drugs: None Hx Prescription Drug Abuse: No - Advance Directive Resuscitation Status: Full Code Family History Family History: DM Parental Family History Reviewed: Yes Children Family History Reviewed: Yes Sibling(s) Family History Reviewed.: Yes Medication/Allergy Home Medications: Lisinopril/Hydrochlorothiazide [Lisinopril-Hctz 20-25 mg Tab] 1 tab PO DAILY 03/22 Metformin HCl [Glucophage] 850 mg PO BID 10/12/17 Metoclopramide HCl [Reglan] 5 mg PO BIDBS 10/12/17 Allergies/Adverse Reactions: Sulfa (Sulfonamide Antibiotics) Allergy (Verified 09/14/17 16:36) Review of Systems Constitutional: ABSENT: chills, fever(s), headache(s), weight gain, weight loss Eyes: ABSENT: visual disturbances Ears: ABSENT: hearing changes Cardiovascular: ABSENT: chest pain, dyspnea on exertion, edema, orthropnea, palpitations Respiratory: ABSENT: cough, hemoptysis Gastrointestinal: ABSENT: abdominal pain, constipation, diarrhea, hematemesis, hematochezia, nausea, vomiting Genitourinary: ABSENT: dysuria, hematuria Musculoskeletal: ABSENT: joint swelling Integumentary: ABSENT: rash, wounds Neurological: ABSENT: abnormal gait, abnormal speech, confusion, dizziness, focal weakness, syncope Psychiatric: ABSENT: anxiety, depression, homidical ideation, suicidal ideation Endocrine: ABSENT: cold intolerance, heat intolerance, polydipsia, polyuria Hematologic/Lymphatic: ABSENT: easy bleeding, easy bruising Physical Exam Vital Signs: Temp Pulse Resp BP Pulse Ox 99.6 F 104 H 18 145/92 H 95 10/12/17 23:43 10/13/17 02:00 10/13/17 01:50 10/12/17 23:43 10/13/17 04:00 Pulse Oximeter Continuous Start: 10/12/17 20: 12 Freq: RTQ4 Status: Active Document 10/13/17 04:00 CMI (Rec: 10/13/17 04:17 CMI [email or web address]) Pulse Oximetry Assessment Oxygen Saturation (92-100) 95 Oxygen Flow Rate (L/min) 2 Oxygen Delivery Method Nasal Cannula Fraction of Inspired Oxygen (FIO2) 28 Equipment Usage Equipment in Use Continuous SpO2 Machine # 1 General appearance: PRESENT: cooperative, mild distress, well-developed, well- nourished Head exam: PRESENT: atraumatic, normocephalic Eye exam: PRESENT: conjunctiva pink, EOMI, PERRLA. ABSENT: scleral icterus Ear exam: PRESENT: normal external ear exam Mouth exam: PRESENT: moist, tongue midline Neck exam: ABSENT: carotid bruit, JVD, lymphadenopathy, thyromegaly Respiratory exam: PRESENT: prolonged expiratory phas, retraction, rhonchi, tachypnea. ABSENT: rales, wheezes Cardiovascular exam: PRESENT: RRR. ABSENT: diastolic murmur, rubs, systolic murmur Pulses: PRESENT: normal dorsalis pedis pul Vascular exam: PRESENT: normal capillary refill GI/Abdominal exam: PRESENT: normal bowel sounds, soft. ABSENT: distended, guarding, mass, organolmegaly, rebound, tenderness Rectal exam: PRESENT: deferred Extremities exam: PRESENT: full ROM. ABSENT: calf tenderness, clubbing, pedal edema Neurological exam: PRESENT: alert, awake, oriented to person, oriented to place , oriented to time, oriented to situation, CN II-XII grossly intact. ABSENT: motor sensory deficit Psychiatric exam: PRESENT: appropriate affect, normal mood. ABSENT: homicidal ideation, suicidal ideation Skin exam: PRESENT: dry, intact, warm. ABSENT: cyanosis, rash Results Laboratory Results: 10/12/17 21:30 Lactic Acid 1.1 Impressions: Chest/Abdomen CTA 10/12/17 17:48 IMPRESSION: No evidence for pulmonary embolic disease. Patchy airspace densities in the left lung as noted above most consistent with patchy pneumonic infiltrates. Right lung is clear and well expanded. No pleural effusions are identified. Other findings as noted above Assessment & Plan - Diagnosis (1) Pneumonia Is this a current diagnosis for this admission?: Yes Plan: Telemetry, pneumonia care set, incentive spirometry, flutter valve, albuterol and Atrovent, trial Levaquin. Follow-up CBC and blood culture (2) Sepsis Is this a current diagnosis for this admission?: Yes Plan: Secondary to #1, IV fluid challenge and empiric antibiotic (3) Diabetes mellitus Is this a current diagnosis for this admission?: Yes Plan: Home regiment with exception to metformin, Humalog sliding scale coverage (4) Hypertension Is this a current diagnosis for this admission?: Yes Plan: MORRIS inhibitor with hydralazine as needed (5) Tobacco abuse Is this a current diagnosis for this admission?: Yes Plan: Tobacco Dependence patient received tobacco cessation counseling and offered nicotine replacement options - Time Time Spent: 30 to 50 Minutes - Inpatient Certification Medical Necessity: Need Close Monitoring Due to Risk of Patient Decompensation
[2017-10-13 05:19] LABS: ABSOLUTE BASOPHILS # (AUTO) 0.1 10^3/uL (0.0-0.2); ABSOLUTE EOSINOPHILS # (AUTO) 0.1 10^3/uL (0.0-0.6); ABSOLUTE LYMPHOCYTES (AUTO) 1.3 10^3/uL (0.5-4.7); ABSOLUTE MONOCYTES (AUTO) 0.6 10^3/uL (0.1-1.4); ABSOLUTE NEUT (AUTO) 5.7 10^3/uL (1.7-8.2); BASOPHILS % (AUTO) 1.1 % (0-2); EOSINOPHILS % (AUTO) 1.1 % (0-6); HEMOGLOBIN 14.5 g/dL (13.5-17.0); LYMPHOCYTES % (AUTO) 16.3 % (13-45); MEAN CORPUSCULAR HEMOGLOBIN 31.8 pg (27.0-33.4); MEAN CORPUSCULAR HGB CONC 35.4 g/dL (32.0-36.0); MEAN CORPUSCULAR VOLUME 90 fl (80-97); MONOCYTES % (AUTO) 7.8 % (3-13); PLATELET COUNT 133 10^3/uL (150-450); RED BLOOD COUNT 4.55 10^6/uL (4.35-5.55); SEGMENTED NEUTROPHILS % (AUTO) 73.7 % (42-78); TOTAL CELLS COUNTED % (AUTO) 100 %; WHITE BLOOD COUNT 7.7 10^3/uL (4.0-10.5)
[2017-10-13 05:33] LABS: ANION GAP 16 (5-19); BLOOD UREA NITROGEN 6 mg/dL (7-20); CALCIUM 9.1 mg/dL (8.4-10.2); CARBON DIOXIDE 23 mmol/L (22-30); CHLORIDE 100 mmol/L (98-107); GLUCOSE 124 mg/dL (75-110); POTASSIUM 3.6 mmol/L (3.6-5.0); SODIUM 138.6 mmol/L (137-145)
[2017-10-13] MEDS: LANSOPRAZOLE 15 MG TAB.RAP.DR PO SCH (05:48)
[2017-10-13] MEDS: HEPARIN SOD (PORCINE) 5,000 UNIT/ML 1 ML SYRINGE SUBCUT SCH ×3 (05:48→21:50)
[2017-10-13] MEDS: LISINOPRIL 10 MG TABLET PO SCH (08:49)
[2017-10-13] MEDS: HYDROCHLOROTHIAZIDE 25 MG TABLET PO SCH (08:49)
[2017-10-13] MEDS: METOCLOPRAMIDE HCL 10 MG TABLET PO SCH ×4 (08:49→21:50)
[2017-10-13] MEDS: FLUTICASONE NASAL SPRAY 50 MCG/SPRY 120 SPRAY/16 GM NASL SCH ×2 (08:50→21:50)
[2017-10-13] MEDS ORDERED: (PENDING PHARMACY ID) (Lisinopril/Hydrochlorothiazide [Zestoretic 20-25 Mg Tablet] 1 TAB) PO SCH (10:00)
--- NOTE | 2017-10-13 12:56 | PDOC PROGRESS REPORT ---
Subjective Progress Note for:: 10/13/17 Subjective:: Feels "a lot better" than when he came in. No new concerns. Reason For Visit: DAR, DM, PNEUMONIA Physical Exam Vital Signs: Temp Pulse Resp BP Pulse Ox 99.1 F 95 16 136/75 H 94 10/13/17 07:00 10/13/17 08:28 10/13/17 08:28 10/13/17 07:00 10/13/17 08:28 Pulse Oximeter Continuous Start: 10/12/17 20: 12 Freq: RTQ4 Status: Active Document 10/13/17 08:28 LDA (Rec: 10/13/17 10:05 LDA [email or web address]) Pulse Oximetry Assessment Oxygen Saturation (92-100) 94 Oxygen Flow Rate (L/min) 2 Oxygen Delivery Method Nasal Cannula Fraction of Inspired Oxygen (FIO2) 28 Equipment Usage Equipment in Use Continuous SpO2 Machine # n-[id number] Intake & Output 10/12/17 10/13/17 10/14/17 05:59 05:59 05:59 Intake Total 320 1200 Output Total 600 250 Balance -280 950 Weight 260 lb 2.327 oz General appearance: PRESENT: no acute distress, morbidly obese Respiratory exam: PRESENT: crackles - Right basilar. ABSENT: rhonchi, wheezes Cardiovascular exam: PRESENT: RRR GI/Abdominal exam: PRESENT: soft Extremities exam: ABSENT: other - No edema Musculoskeletal exam: PRESENT: normal inspection Neurological exam: PRESENT: alert Psychiatric exam: PRESENT: appropriate affect Skin exam: PRESENT: warm Results Laboratory Results: 10/13/17 04:20 10/13/17 04:20 10/12/17 10/13/17 10/13/17 21:30 04:20 04:20 WBC 7.7 RBC 4.55 Hgb 14.5 Hct 41.0 MCV 90 MCH 31.8 MCHC 35.4 RDW 13.0 Plt Count 133 L Seg Neutrophils % 73.7 Lymphocytes % 16.3 Monocytes % 7.8 Eosinophils % 1.1 Basophils % 1.1 Absolute Neutrophils 5.7 Absolute Lymphocytes 1.3 Absolute Monocytes 0.6 Absolute Eosinophils 0.1 Absolute Basophils 0.1 Sodium 138.6 Potassium 3.6 Chloride 100 Carbon Dioxide 23 Anion Gap 16 BUN 6 L Creatinine 0.66 Est GFR ( Amer) > 60 Est GFR (Non-Af Amer) > 60 Glucose 124 H Lactic Acid 1.1 Calcium 9.1 Impressions: Chest/Abdomen CTA 10/12/17 17:48 IMPRESSION: No evidence for pulmonary embolic disease. Patchy airspace densities in the left lung as noted above most consistent with patchy pneumonic infiltrates. Right lung is clear and well expanded. No pleural effusions are identified. Other findings as noted above Assessment & Plan - Diagnosis (1) Pneumonia Qualifiers: Pneumonia type: due to unspecified organism Laterality: left Lung location: lower lobe of lung Qualified Code(s): J18.1 - Lobar pneumonia, unspecified organism Is this a current diagnosis for this admission?: Yes Plan: Continue Levaquin. (2) Sepsis Qualifiers: Sepsis type: sepsis due to unspecified organism Qualified Code(s): A41.9 - Sepsis, unspecified organism Is this a current diagnosis for this admission?: Yes Plan: Presumably the same organism that caused his pneumonia. Statistically should be pneumococcus, but the patchy distribution makes me concerned for an atypical. (3) Diabetes mellitus Qualifiers: Diabetes mellitus type: type 2 Diabetes mellitus fpc insulin use: without fpc use Diabetes mellitus complication status: without complication Qualified Code(s): E11.9 - Type 2 diabetes mellitus without complications Is this a current diagnosis for this admission?: Yes Plan: Stable. Restart his metformin and continue sliding scale insulin. (4) Hypertension Qualifiers: Hypertension type: essential hypertension Qualified Code(s): I10 - Essential (primary) hypertension Is this a current diagnosis for this admission?: Yes Plan: Normotensive off his home medication. Add back as his blood pressure improves. (5) Tobacco abuse Is this a current diagnosis for this admission?: Yes Plan: Nicotine replacement
[2017-10-13] MEDS: NORMAL SALINE 1000 ML 1,000 ML IV SCH (15:34)
[2017-10-13] MEDS: METFORMIN HCL 850 MG TABLET PO SCH (17:59)
[2017-10-13] MEDS ORDERED: LEVOFLOXACIN 750 MG/D5W RTU 750 MG/150 ML RTUPB IV SCH (18:00)
[2017-10-13] MEDS ORDERED: LOPERAMIDE HCL 2 MG CAPSULE PO PRN (18:25)
[2017-10-13] MEDS ORDERED: LOPERAMIDE HCL 2 MG CAPSULE PO ONE (19:00)
[2017-10-14] MEDS: IPRATROPIUM/ALBUTEROL 0.5-2.5 MG/3 ML AMPUL NEB SCH ×4 (02:11→20:29)
[2017-10-14] MEDS: ACETAMINOPHEN 325 MG TABLET PO PRN ×2 (04:00→20:34)
[2017-10-14] MEDS: GUAIFENESIN/D-METHORPHAN (200-20 MG) SYRUP 10 ML PO PRN ×2 (04:01→14:18)
[2017-10-14] MEDS: LANSOPRAZOLE 15 MG TAB.RAP.DR PO SCH (05:06)
[2017-10-14] MEDS: HEPARIN SOD (PORCINE) 5,000 UNIT/ML 1 ML SYRINGE SUBCUT SCH ×3 (05:06→21:53)
[2017-10-14 06:59] LABS: ABSOLUTE BASOPHILS # (AUTO) 0.1 10^3/uL (0.0-0.2); ABSOLUTE EOSINOPHILS # (AUTO) 0.1 10^3/uL (0.0-0.6); ABSOLUTE LYMPHOCYTES (AUTO) 1.6 10^3/uL (0.5-4.7); ABSOLUTE MONOCYTES (AUTO) 0.4 10^3/uL (0.1-1.4); ABSOLUTE NEUT (AUTO) 4.7 10^3/uL (1.7-8.2); HEMATOCRIT 43.2 % (37.9-51.0); LYMPHOCYTES % (AUTO) 23.4 % (13-45); MEAN CORPUSCULAR HEMOGLOBIN 31.7 pg (27.0-33.4); MEAN CORPUSCULAR HGB CONC 34.7 g/dL (32.0-36.0); MEAN CORPUSCULAR VOLUME 91 fl (80-97); MONOCYTES % (AUTO) 6.4 % (3-13); PLATELET COUNT 128 10^3/uL (150-450); RED BLOOD COUNT 4.74 10^6/uL (4.35-5.55); SEGMENTED NEUTROPHILS % (AUTO) 68.2 % (42-78); TOTAL CELLS COUNTED % (AUTO) 100 %; WHITE BLOOD COUNT 6.9 10^3/uL (4.0-10.5)
[2017-10-14] MEDS: METOCLOPRAMIDE HCL 10 MG TABLET PO SCH ×4 (07:39→21:53)
[2017-10-14] MEDS: HYDROCHLOROTHIAZIDE 25 MG TABLET PO SCH (10:06)
[2017-10-14] MEDS: FLUTICASONE NASAL SPRAY 50 MCG/SPRY 120 SPRAY/16 GM NASL SCH ×2 (10:06→21:53)
[2017-10-14] MEDS: LISINOPRIL 10 MG TABLET PO SCH (10:07)
--- NOTE | 2017-10-14 12:58 | PDOC PROGRESS REPORT ---
Subjective Progress Note for:: 10/14/17 Subjective:: Continues to feel better daily. Diarrhea resolved with a single dose of Imodium. Reason For Visit: DAR, DM, PNEUMONIA Physical Exam Vital Signs: Temp Pulse Resp BP Pulse Ox 99.6 F 88 19 135/71 H 94 10/14/17 11:53 10/14/17 11:53 10/14/17 11:53 10/14/17 11:53 10/14/17 11:53 Pulse Oximeter Continuous Start: 10/12/17 20: 12 Freq: RTQ4 Status: Active Document 10/14/17 07:44 JDR (Rec: 10/14/17 07:48 J [email or web address]) Pulse Oximetry Assessment Oxygen Saturation (92-100) 92 Oxygen Flow Rate (L/min) 2 Oxygen Delivery Method Nasal Cannula Fraction of Inspired Oxygen (FIO2) 28 Equipment Usage Equipment in Use Continuous SpO2 Machine # 1 Intake & Output 10/13/17 10/14/17 10/15/17 05:59 05:59 05:59 Intake Total 320 4280 Output Total 600 250 Balance -280 4030 Weight 267 lb 6.731 oz 267 lb 6.731 oz General appearance: PRESENT: no acute distress, morbidly obese Respiratory exam: PRESENT: rales - Right basilar Cardiovascular exam: PRESENT: RRR GI/Abdominal exam: PRESENT: soft Rectal exam: PRESENT: normal inspection Extremities exam: ABSENT: +1 edema Neurological exam: PRESENT: alert Psychiatric exam: PRESENT: appropriate affect Skin exam: PRESENT: warm Results Laboratory Results: 10/14/17 06:34 10/13/17 04:20 10/14/17 06:34 WBC 6.9 RBC 4.74 Hgb 15.0 Hct 43.2 MCV 91 MCH 31.7 MCHC 34.7 RDW 13.0 Plt Count 128 L Seg Neutrophils % 68.2 Lymphocytes % 23.4 Monocytes % 6.4 Eosinophils % 1.0 Basophils % 1.0 Absolute Neutrophils 4.7 Absolute Lymphocytes 1.6 Absolute Monocytes 0.4 Absolute Eosinophils 0.1 Absolute Basophils 0.1 Impressions: Chest/Abdomen CTA 10/12/17 17:48 IMPRESSION: No evidence for pulmonary embolic disease. Patchy airspace densities in the left lung as noted above most consistent with patchy pneumonic infiltrates. Right lung is clear and well expanded. No pleural effusions are identified. Other findings as noted above Assessment & Plan - Diagnosis (1) Pneumonia Qualifiers: Pneumonia type: due to unspecified organism Laterality: left Lung location: lower lobe of lung Qualified Code(s): J18.1 - Lobar pneumonia, unspecified organism Is this a current diagnosis for this admission?: Yes Plan: Clinically improving. Had a temperature of 101.9 about midnight. Change him over to oral Levaquin and otherwise continue present management (2) Sepsis Qualifiers: Sepsis type: sepsis due to unspecified organism Qualified Code(s): A41.9 - Sepsis, unspecified organism Is this a current diagnosis for this admission?: Yes Plan: Presumably the same organism that caused his pneumonia. Statistically should be pneumococcus, but the patchy distribution makes me concerned for an atypical. Cultures have been negative thus far (3) Diabetes mellitus Qualifiers: Diabetes mellitus type: type 2 Diabetes mellitus intermodal truck driver insulin use: without intermodal truck driver use Diabetes mellitus complication status: without complication Qualified Code(s): E11.9 - Type 2 diabetes mellitus without complications Is this a current diagnosis for this admission?: Yes Plan: Stable. Continue his home metformin and continue sliding scale insulin. (4) Hypertension Qualifiers: Hypertension type: essential hypertension Qualified Code(s): I10 - Essential (primary) hypertension Is this a current diagnosis for this admission?: Yes Plan: Normotensive off his home medication. Add back as his blood pressure improves. (5) Tobacco abuse Is this a current diagnosis for this admission?: Yes Plan: Nicotine replacement
[2017-10-15] MEDS: IPRATROPIUM/ALBUTEROL 0.5-2.5 MG/3 ML AMPUL NEB SCH ×2 (02:11→07:45)
[2017-10-15 06:37] LABS: ABSOLUTE EOSINOPHILS # (AUTO) 0.1 10^3/uL (0.0-0.6); ABSOLUTE LYMPHOCYTES (AUTO) 1.8 10^3/uL (0.5-4.7); ABSOLUTE MONOCYTES (AUTO) 0.4 10^3/uL (0.1-1.4); ABSOLUTE NEUT (AUTO) 2.7 10^3/uL (1.7-8.2); EOSINOPHILS % (AUTO) 1.9 % (0-6); HEMATOCRIT 41.9 % (37.9-51.0); HEMOGLOBIN 14.7 g/dL (13.5-17.0); LYMPHOCYTES % (AUTO) 35.1 % (13-45); MEAN CORPUSCULAR HEMOGLOBIN 31.5 pg (27.0-33.4); MEAN CORPUSCULAR HGB CONC 35.2 g/dL (32.0-36.0); MEAN CORPUSCULAR VOLUME 90 fl (80-97); MONOCYTES % (AUTO) 8.7 % (3-13); PLATELET COUNT 149 10^3/uL (150-450); RED BLOOD COUNT 4.67 10^6/uL (4.35-5.55); RED CELL DISTRIBUTION WIDTH 13.3 % (11.5-14.0); SEGMENTED NEUTROPHILS % (AUTO) 53.3 % (42-78); TOTAL CELLS COUNTED % (AUTO) 100 %
[2017-10-15] MEDS: HEPARIN SOD (PORCINE) 5,000 UNIT/ML 1 ML SYRINGE SUBCUT SCH (06:49)
[2017-10-15] MEDS: LANSOPRAZOLE 15 MG TAB.RAP.DR PO SCH (06:50)
[2017-10-15] MEDS: METFORMIN HCL 850 MG TABLET PO SCH (10:13)
[2017-10-15] MEDS: HYDROCHLOROTHIAZIDE 25 MG TABLET PO SCH (10:13)
[2017-10-15] MEDS: LISINOPRIL 10 MG TABLET PO SCH (10:13)
[2017-10-15] MEDS: FLUTICASONE NASAL SPRAY 50 MCG/SPRY 120 SPRAY/16 GM NASL SCH (10:14)
[2017-10-15] MEDS: METOCLOPRAMIDE HCL 10 MG TABLET PO SCH (10:14)
[2017-10-15 11:17] VITALS: BP 131/72
--- NOTE | 2017-10-15 15:18 | PDOC DISCHARGE SUMMARY ---
General - Admit/Disc Date/PCP Admission Date/Primary Care Provider: 10/12/17 20:37 Discharge Date: 10/15/17 - Discharge Diagnosis (1) Pneumonia Is this a current diagnosis for this admission?: Yes Summary: Treated initially with IV Levaquin and that was transitioned over to oral. He is now on room air, has defervesced, and anxious to go home. (2) Sepsis Is this a current diagnosis for this admission?: Yes (3) Diabetes mellitus Is this a current diagnosis for this admission?: Yes Summary: Home medications were continued and he was covered with sliding scale insulin. His blood sugars have been well controlled. (4) Hypertension Is this a current diagnosis for this admission?: Yes Summary: Home medications have been continued (5) Tobacco abuse Is this a current diagnosis for this admission?: Yes Summary: Cessation was strongly encouraged and he was counseled repeatedly - Additional Information Resuscitation Status: Full Code Discharge Diet: Diabetic Discharge Activity: Activity As Tolerated, Balance Activity w/Rest Prescriptions: Levofloxacin [Levaquin 750 mg Tablet] 750 mg PO QPM #5 tablet Home Medications: Lisinopril/Hydrochlorothiazide [Lisinopril-Hctz 20-25 mg Tab] 1 tab PO DAILY 03/22 Metformin HCl [Glucophage] 850 mg PO BID 10/12/17 Metoclopramide HCl [Reglan] 5 mg PO BIDBS 10/12/17 Fluticasone Propionate [Flonase Nasal Arp 50 Mcg/Arp 16 gm] 2 spray NASL Q12 spray.pump 10/15/17 Levofloxacin [Levaquin 750 mg Tablet] 750 mg PO QPM #5 tablet 10/15/17 History of Present Illness Patient complains of: Short of breath with a cough History of Present Illness: CHANTELL HIGUERA is a 42 year old male with a history of tobacco, chronic bronchitis , obstructive sleep apnea, diabetes, hypertension and GERD. Patient presents with 3 days of nonproductive cough and shortness of breath prompting evaluation emergency room where he is found to have CT of the chest showing left-sided infiltrate. He started on empiric antibiotics and referred to the hospitalist for admission. Patient admits recent ill contacts with pneumonia. He denies chest pain, rhinorrhea, sore throat or GERD. Hospital Course Hospital Course: He was treated with Levaquin, nebulizers, flutter valve, and aggressive pulmonary toilet. He has improved daily. His last fever was over 24 hours ago. He was transitioned to oral Levaquin yesterday and he will be discharged on another 5 days. He had an episode of diarrhea early in his admission that was treated symptomatically with Imodium after verifying that it was C. difficile negative. He has had no further recurrence Diabetes has been monitored continuously he has not required supplemental insulin, and his home medications were restarted. Home medications were added back as his blood pressure improved and he will be discharged on his previous medications. Physical Exam Vital Signs: Temp Pulse Resp BP Pulse Ox 99.7 F 80 16 131/72 H 90 L 10/15/17 11:16 10/15/17 11:16 10/15/17 11:16 10/15/17 11:16 10/15/17 11:16 Pulse Oximeter Continuous Start: 10/12/17 20: 12 Freq: RTQ4 Status: Discharge Document 10/15/17 07:52 J (Rec: 10/15/17 07:54 J [email or web address]) Pulse Oximetry Assessment Oxygen Saturation (92-100) 90 Oxygen Delivery Method Room Air Fraction of Inspired Oxygen (FIO2) 21 Equipment Usage Equipment in Use Continuous SpO2 Machine # 1 Intake & Output 10/14/17 10/15/17 10/16/17 05:59 05:59 05:59 Intake Total 4280 830 1110 Output Total 250 Balance 4030 830 1110 Weight 267 lb 6.731 oz 267 lb 6.731 oz 265 lb 14.04 oz General appearance: PRESENT: no acute distress, cooperative, morbidly obese Respiratory exam: PRESENT: clear to auscultation shilpa Cardiovascular exam: PRESENT: RRR GI/Abdominal exam: PRESENT: soft Extremities exam: ABSENT: +2 edema Musculoskeletal exam: PRESENT: ambulatory Neurological exam: PRESENT: alert Psychiatric exam: PRESENT: appropriate affect Skin exam: PRESENT: dry, warm Results Laboratory Results: 10/15/17 05:59 10/13/17 04:20 10/15/17 05:59 WBC 5.0 RBC 4.67 Hgb 14.7 Hct 41.9 MCV 90 MCH 31.5 MCHC 35.2 RDW 13.3 Plt Count 149 L Seg Neutrophils % 53.3 Lymphocytes % 35.1 Monocytes % 8.7 Eosinophils % 1.9 Basophils % 1.0 Absolute Neutrophils 2.7 Absolute Lymphocytes 1.8 Absolute Monocytes 0.4 Absolute Eosinophils 0.1 Absolute Basophils 0.0 10/13/17 04:23 Stool - Stool - Final 10/13/17 04:23 Stool - Stool Stool Culture - Final NO SALMONELLA, SHIGELLA, CAMPYLOBACTER, OR E.COLI 0157 RECOVERED. NEGATIVE FOR SHIGA TOXINS 1&2. Impressions: Chest/Abdomen CTA 10/12/17 17:48 IMPRESSION: No evidence for pulmonary embolic disease. Patchy airspace densities in the left lung as noted above most consistent with patchy pneumonic infiltrates. Right lung is clear and well expanded. No pleural effusions are identified. Other findings as noted above Qualifiers - * PATIENT BEING DISCHARGED WITH ANY OF THE FOLLOWING DIAGNOSIS: No
[2017-10-15] MEDS ORDERED: LEVOFLOXACIN 750 MG TABLET PO SCH (18:00)
== END 2017-10-15 11:32 | disposition home or self-care (01) | DRG 871 ==
LOC: ER 16:54 → EH 20:37 → 5 23:30
PROVIDERS: ADMIT Internal Medicine; ATTEND Internal Medicine
PROC: 3E0F73Z Introduction of Anti-inflammatory into Respiratory Tract, Via Natural or Artificial Opening (ICD-10-PCS; principal; 2017-10-13)
DX: A41.9 Sepsis, unspecified organism (principal); J18.9 Pneumonia, unspecified organism; Z68.41 Body mass index [BMI] 40.0-44.9, adult; I10 Essential (primary) hypertension; J42 Unspecified chronic bronchitis; E11.9 Type 2 diabetes mellitus without complications; F17.210 Nicotine dependence, cigarettes, uncomplicated; E66.01 Morbid (severe) obesity due to excess calories; G47.33 Obstructive sleep apnea (adult) (pediatric); K21.9 Gastro-esophageal reflux disease without esophagitis; E66.9 Obesity, unspecified; Z79.84 Long term (current) use of oral hypoglycemic drugs; Z90.49 Acquired absence of other specified parts of digestive tract; Z88.2 Allergy status to sulfonamides
CPT/HCPCS: 36415; 71275; 80048; 80053; 81001; 82803; 82962; 83605; 83690; 85025; 85610; 87040; 87045; 87070; 87086; 87205; 87493; 87804; 93005; 93010; 94640; 94668; 94762; 94799; 96361; 96365; 96372; 99285; J1644; J1956; J3490; J7030; J7620

== ENCOUNTER 2017-12-04 10:42 | Emergency (ER) | payer SELFPAY ==
[2017-12-04 10:51] VITALS: BP 127/79
--- NOTE | 2017-12-04 11:17 | ER Document Report ---
HPI - HPI Pain Level: Denies Notes: Patient is a 42-year-old male with a history of hypertension and type 2 diabetes who presents to the ED for medication refills of his metformin and lisinopril. Patient states that [facility] , but they sent him here for refills. Patient states that he has no concerns or complaints. Patient states that he feels great and is eating and drinking without any difficulties. He is urinating normally and having normal bowel movements. Patient does admit to smoking. No other concerns or complaints. His glucose has been running in the low 200s as he has been out of metformin for 2 days. No h/o DKA. Denies any headache, fever, URI , sore throat, chest pain, palpitations, syncope, cough, shortness of breath, wheeze, dyspnea, abdominal pain, nausea/vomiting/diarrhea, urinary retention, dysuria, hematuria, or rash. - ROS Systems Reviewed and Negative: Yes All other systems reviewed and negative Past Medical History - Social History Smoking Status: Current Every Day Smoker Chew tobacco use (# tins/day): No Frequency of alcohol use: Occasional Drug Abuse: None Family History: DM Patient has suicidal ideation: No Patient has homicidal ideation: No - Past Medical History Cardiac Medical History: Reports: Hx Hypertension Denies: Hx Coronary Artery Disease, Hx Heart Attack, Hx Hypercholesterolemia Pulmonary Medical History: Reports: Hx Bronchitis Endocrine Medical History: Reports: Hx Diabetes Mellitus Type 1. Denies: Hx Diabetes Mellitus Type 2 Renal/ Medical History: Denies: Hx Peritoneal Dialysis Past Surgical History: Reports: Hx Cholecystectomy Vertical Provider Document - CONSTITUTIONAL Agree With Documented VS: Yes Notes: PHYSICAL EXAMINATION: GENERAL: Well-appearing, well-nourished and in no acute distress. LUNGS: Breath sounds clear to auscultation bilaterally and equal. No wheezes rales or rhonchi. HEART: Regular rate and rhythm without murmurs, rubs, gallops. ABDOMEN: Soft, nontender, nondistended abdomen. No guarding, no rebound. No masses appreciated. Normal bowel sounds present. No CVA tenderness bilaterally. Extremities: No cyanosis, clubbing, or edema b/l. Peripheral pulses 2+. Capillary refill less than 3 seconds. NEUROLOGICAL: Normal speech, normal gait. PSYCH: Normal mood, normal affect. SKIN: Warm, Dry, normal turgor, no rashes or lesions noted. - INFECTION CONTROL TRAVEL OUTSIDE OF THE [place] IN LAST 30 DAYS: No Course - Re-evaluation Re-evalutation: 12/04/17 11:14 Patient is an afebrile, well-hydrated, 42-year-old male who presents to the ED for medication refills for his diabetes and hypertension. Vitals are acceptable without any significant tachycardia, tachypnea, or hypoxia. PE is otherwise unremarkable. Patient is nontoxic-appearing and is tolerating p.o. without difficulties. I will refill his medications. No labs or imaging warranted at this time based on H&P. Patient is otherwise asymptomatic. Patient keep follow-up with his PCM in about 2-1/2 weeks. Return to the ED with any worsening/concerning symptoms otherwise as reviewed discharge. Patient is in agreement. - Vital Signs Vital signs: Temp Pulse Resp BP Pulse Ox 98.5 F 78 16 127/79 H 96 12/04/17 10:51 12/04/17 10:51 12/04/17 10:51 12/04/17 10:51 12/04/17 10:51 Discharge - Discharge Clinical Impression: Medication refill Condition: Stable Disposition: HOME, SELF-CARE Additional Instructions: Maintain adequate fluid and food intake Take home medications as directed Low sodium/fat/carb/sugar diet Exercise regularly Weight control Monitor blood pressure and blood glucose at least once daily and keep a log Monitor symptoms for any acute changes Recheck with your PCM in 3-5 days Consider a follow-up with cardiology Return to the ED with any worsening symptoms and/or development of fever, headache, chest pain, palpitations, syncope, shortness of breath, trouble breathing, abdominal pain, n/v/d, blood in stool/urine, loss of control of bowel /bladder, urinary retention, muscle weakness/paralysis, numbness/tingling, or other worsening symptoms that are concerning to you. Prescriptions: Lisinopril/Hydrochlorothiazide [Lisinopril-Hctz 20-25 mg Tab] 1 each PO DAILY # 15 tablet Metformin HCl 850 mg PO BID #30 tablet Forms: Elevated Blood Pressure Referrals: [facility] [Provider Group] - 12/20/17
== END 2017-12-04 11:23 | disposition home or self-care (01) ==
LOC: ER 10:42
DX: Z76.0 Encounter for issue of repeat prescription (principal); E11.9 Type 2 diabetes mellitus without complications; I10 Essential (primary) hypertension; T38.3X6A Underdosing of insulin and oral hypoglycemic [antidiabetic] drugs, initial encounter; Z91.128 Patient's intentional underdosing of medication regimen for other reason; Z91.14 Patient's other noncompliance with medication regimen; F17.200 Nicotine dependence, unspecified, uncomplicated
CPT/HCPCS: 99281